=== PATIENT | female | born 1960 | race Caucasian/White ===

== ENCOUNTER 2020-01-27 09:09 | Day surgery (SDC) | payer OTHER ==
[2020-01-27] MEDS ORDERED: Midazolam 1 MG/ML 2 ML SDV IV ONE (09:10)
[2020-01-27] MEDS ORDERED: Lidocaine 2% 5 ML SDV INJECT ONE (09:10)
[2020-01-27] MEDS ORDERED: Propofol 200 MG/20 ML SDV IV ONE (09:10)
[2020-01-27] MEDS ORDERED: Lactated Ringers 1,000 ML IV SCH (10:30)
[2020-01-27] MEDS ORDERED: Sodium Chloride 0.9% 10 ML Syringe FLUSH PRN (10:30)
--- NOTE | 2020-01-27 10:49 | PCM.OPNOTE ---
- General Post-Op/Procedure Note Date of Surgery/Procedure: 01/27/20 Operative Procedure(s): c scope with biopsy Findings: rectal polyp Pre Op Diagnosis: personal hx of rectal ca. hx of transanal excision. Post-Op Diagnosis: rectal polyp Anesthesia Technique: MAC Primary Surgeon: Danish Trevizo Anesthesia Provider: Danica Rodriguez Pathology: rectal polyp Complications: None Condition: Good Free Text/Narrative:: see dictation
[2020-01-27 11:45] VITALS: BP 138/84; PULSE 91
--- NOTE | 2020-01-27 15:22 | OR ---
DATE OF OPERATION: 01/27/2020 SURGEON: Danish Trevizo MD PROCEDURE PERFORMED: Colonoscopy with cold forceps biopsy. PREOPERATIVE DIAGNOSIS: Personal history of rectal cancer, status post transanal excision of same. POSTOPERATIVE DIAGNOSIS: Rectal polyp at 10 cm. INDICATIONS FOR PROCEDURE: This is a 59-year-old white female with the above- mentioned history. She presents now for routine followup colonoscopy. She is without complaints. DESCRIPTION OF OPERATION: After an excellent IV sedation was administered, digital rectal exam was performed. No marked abnormality was noted. Flexible colonoscope was inserted and advanced to the cecum without difficulty. The following findings were noted: The prep was excellent. The ascending colon was unremarkable. Transverse colon was unremarkable. Descending colon, unremarkable. Sigmoid, unremarkable. Rectum, in what appeared to be the region of the previous excision a small 4 mm polyp was encountered. This was biopsied with the cold biopsy forceps and submitted in 1 container. The remainder of the exam in this area was unremarkable. The patient tolerated the procedure well, was taken to Recovery. Results will be sent to the patient via letter. /[id number] /MODL
== END 2020-01-27 12:34 | disposition home or self-care (01) ==
LOC: FB.SDS 09:09
PROVIDERS: ATTEND Surgery
DX: Z12.11 Encounter for screening for malignant neoplasm of colon (principal); K62.1 Rectal polyp; E03.9 Hypothyroidism, unspecified; Z85.048 Personal history of other malignant neoplasm of rectum, rectosigmoid junction, and anus; Z79.899 Other long term (current) drug therapy; Z88.2 Allergy status to sulfonamides; Z98.890 Other specified postprocedural states
CPT/HCPCS: 00811-QZ; 88305; J2001; J2250; J2704; J7120